=== PATIENT | female | born 1950 | race Caucasian/White ===

== ENCOUNTER 2018-08-21 10:55 | Emergency (ER) | payer MEDICARE ==
[2018-08-21] MEDS ORDERED: DILANTIN100 MG PO (11:25)
[2018-08-21 12:24] VITALS: BP 116/63
== END 2018-08-21 12:24 | disposition home or self-care (01) ==
LOC: ED 10:55
DX: S90.31XA Contusion of right foot, initial encounter (principal); V18.0XXA Pedal cycle driver injured in noncollision transport accident in nontraffic accident, initial encounter; Y93.55 Activity, bike riding